=== PATIENT | male | born 1935 | race Caucasian/White ===

== ENCOUNTER 2020-01-27 08:01 | Outpatient (CLI) | payer MEDICARE, OTHER ==
--- NOTE | 2020-01-27 18:14 | EKG ---
Test Reason : Blood Pressure : / mmHG Vent. Rate : 074 BPM Atrial Rate : 074 BPM P-R Int : 218 ms QRS Dur : 110 ms QT Int : 366 ms P-R-T Axes : 082 -05 046 degrees QTc Int : 406 ms Sinus rhythm with 1st degree A-V block Otherwise normal ECG No previous ECGs available Confirmed by DR. Param ESCOBAR ([id number]) on 01/27/2020 6:13:41 PM Referred By: HELENE Confirmed By:DR. Param ESCOBAR
[2020-01-28 16:23] LABS: SARS-CoV-2 MS2 Positive; SARS-CoV-2 N Gene Negative; SARS-CoV-2 S Gene Negative; SARS-CoV-2 by NAA Not Detected (NotDetected); SARS-CoV-2 orf1ab Negative
== END 2020-01-27 08:02 | disposition home or self-care (01) ==
LOC: LABBT 08:01
PROVIDERS: ATTEND Neurological Surgery
DX: Z01.818 Encounter for other preprocedural examination (principal); Z20.828 Contact with and (suspected) exposure to other viral communicable diseases
CPT/HCPCS: 93005; U0003; 87635; 93010

== ENCOUNTER 2020-01-27 14:00 | Inpatient (IN) | payer MEDICARE, OTHER ==
[2020-01-30] MEDS ORDERED: Thrombin 5000 UNITS/5 ML VIAL ONE (06:11)
[2020-01-30] MEDS ORDERED: Lidocaine 0.5%/Epinephrine 1:200,000 50 ml Vial ONE (06:11)
[2020-01-30] MEDS ORDERED: Fentanyl 250 MCG/5 ML VIAL ONE (06:13)
[2020-01-30] MEDS ORDERED: levETIRAcetam 500 MG/100 ML PREMIX BAG ONE (06:14)
[2020-01-30] MEDS ORDERED: Albumin 5% 500 ML ONE (06:14)
[2020-01-30] MEDS ORDERED: Propofol 1,000 MG/100 ML VIAL IV ONE (06:44)
[2020-01-30 07:05] LABS: #Basophils 0.1 thou/uL (0.0-0.2); #Eosinphils 0.2 thou/uL (0.0-0.7); #Lymphocytes 1.2 thou/uL (1.20-3.40); #Monocytes 0.7 thou/uL (0.11-0.59); #Neutrophils 2.9 thou/uL (1.40-6.50); %Basophils 1.6 % (0.0-1.0); %Monocytes 13.4 % (0.0-10.0); Hemoglobin 9.4 g/dL (14.0-18.0); Mean Corpuscular HGB CONC 32.5 g/dL (32.0-36.0); Mean Corpuscular Hemoglobin 34.3 pg (27.0-31.0); Mean Platelet Volume 6.5 fL (7.4-10.4); Platelet Count 340 thou/uL (130-400); RBC Distribution Width 15.5 % (11.5-14.5); Red Blood Cell (RBC) Count 2.75 mill/uL (4.70-6.10); White Blood Cell (WBC) Count 5.1 thou/uL (4.8-10.8)
[2020-01-30] MEDS ORDERED: Clindamycin/D5W 900 mg/50 ml Premix Bag ONE (07:08)
[2020-01-30] MEDS ORDERED: Levofloxacin 500 mg/D5W 100 ml Premix Bag ONE (07:08)
[2020-01-30] MEDS ORDERED: Midazolam HCl 2 mg/2 ml Vial ONE (07:14)
[2020-01-30 07:15] LABS: Anion Gap 13 mmol/L (10-20); BUN (Urea Nitrogen) 25 mg/dL (8.4-25.7); Calc. Creatinine Clearance 27 mL/min (70-130); Calcium 8.6 mg/dL (7.8-10.44); Carbon Dioxide 21 mmol/L (23-31); Chloride 107 mmol/L (98-107); Estimated GFR-MDRD 23; Glucose 91 mg/dL (83-110); Potassium 4.9 mmol/L (3.5-5.1); Sodium 136 mmol/L (136-145)
--- NOTE | 2020-01-30 08:16 | CT ---
CT OF THE BRAIN WITHOUT CONTRAST: Date: 01/30/2020 INDICATION: History of preop evaluation of the brain; brain lab protocol. COMPARISON: None. FINDINGS: There is an extra-axial hyperdense mass overlying the left parietal lobe measuring 4.2 x 2.8 cm with underlying vasogenic edema of the subcortical white matter. There is underlying effacement of the sul ci of the left parietal region. There is no apparent midline shift. 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 No acute infarct or hemorrhage is evident. Visualized mastoid air cells and paranasal sinuses are clear. Skull is intact. IMPRESSION: Suspected hyperdense extra-axial mass overlying the left parietal convexity with underlying mass effe ct and vasogenic edema of the left parietal lobe. No midline shift is evident. POS: BH
[2020-01-30] MEDS ORDERED: Phenylephrine 10 MG/ML VIAL ONE (08:48)
[2020-01-30] MEDS ORDERED: Esmolol 100 MG/10 ML VIAL ONE (09:35)
[2020-01-30] MEDS ORDERED: Labetalol HCl 100 MG/20 ML VIAL ONE (09:35)
[2020-01-30] MEDS ORDERED: Dexamethasone 20 MG/5 ML VIAL ONE (09:35)
[2020-01-30] MEDS ORDERED: Ondansetron PF 4 MG/2 ML Vial ONE (09:35)
[2020-01-30] MEDS ORDERED: PROPOFOL 200 MG/20 ML VIAL ONE (09:35)
[2020-01-30] MEDS ORDERED: PHENYLEPHRINE-NS 100 MCG/ML 10 ML SYRINGE ONE (09:35)
[2020-01-30] MEDS ORDERED: Vecuronium 10 MG VIAL ONE (09:35)
[2020-01-30] MEDS ORDERED: Lidocaine 1% PF 5 ML VIAL ONE (09:35)
[2020-01-30] MEDS ORDERED: PACU-Morphine 4MG/ML VIAL SLOW IVP PRN (09:49)
[2020-01-30] MEDS ORDERED: Promethazine HCl 25 MG/ML VIAL SLOW IVP PRN (09:49)
[2020-01-30] MEDS ORDERED: Morphine Sulfate 2 MG/ML SYRINGE SLOW IVP PRN (09:49)
[2020-01-30] MEDS ORDERED: Ondansetron HCl/PF 4 MG/2 ML Vial IVP PRN (09:49)
[2020-01-30] MEDS ORDERED: Promethazine HCl 25 MG/ML VIAL IM PRN (09:49)
[2020-01-30] MEDS ORDERED: SUGAMMADEX SODIUM 200 MG/2 ML VIAL ONE (10:00)
[2020-01-30] MEDS ORDERED: diphenhydrAMINE 50 MG/ML VIAL IVP PRN (10:10)
[2020-01-30] MEDS ORDERED: Labetalol HCl 100 MG/20 ML VIAL SLOW IVP PRN (10:10)
[2020-01-30] MEDS ORDERED: Morphine 2 MG/ML VIAL SLOW IVP PRN (10:10)
[2020-01-30] MEDS ORDERED: Ondansetron PF 4 MG/2 ML Vial IVP PRN (10:10)
[2020-01-30] MEDS ORDERED: hydrALAZINE 20 MG/ML VIAL SLOW IVP PRN (10:10)
[2020-01-30] MEDS ORDERED: Docusate 100 MG CAP PO PRN (10:10)
[2020-01-30] MEDS ORDERED: clonazePAM 0.5 MG TAB PO PRN (10:12)
[2020-01-30] MEDS ORDERED: Ergocalciferol 1.25 MG(50,000 UNITS) CAP PO SCH ×2 (10:15→10:30)
[2020-01-30] MEDS ORDERED: Fentanyl 100 MCG/2 ML VIAL ONE (11:07)
--- NOTE | 2020-01-30 13:34 | OP ---
DATE OF PROCEDURE: 01/30/2020 POULTRY HATCHERY MANAGER: Anish Navas PA-C INDICATION: Prevent neurologic decline. DIAGNOSIS: Extra-axial mass consistent with tumor. PROCEDURE PERFORMED: Left frontoparietal craniotomy with resection of tumor and use of stereotactic image guidance for operative planning for microdissection. ANESTHESIA: General. DESCRIPTION OF PROCEDURE: The patient was brought into the operating room and placed under general anesthesia. He was placed on table in a supine position. The three-point Herrera Chau was applied to his head for optimal exposure and fixation to the table. Stereotactic imaging device was attached to the Chau system, and using fiducials, the BrainSlated system was registered for purposes of planning the incision and bone work. The incision was then prepped and draped in the usual sterile fashion. Following an appropriate operative pause, the incision was created. A self-retaining retractor was placed. Four bur holes were placed and a craniotomy was performed after connecting the montez holes with the router drill bit. The underlying dura was identified and bipolar cautery was used to devascularize the underlying tumor. A circumferential incision in the dura was created around the outlines of the tumor. The tumor was then carefully resected in a gross total fashion throughout as there was a nice plane between tumor and brain consistent with meningioma. After completing the removal of the tumor, hemostasis was maintained. We used irrigant quite liberally. Dural tack-up sutures were placed around the perimeter of the bone flap. The large sheet of Gel-Foam was placed over the dural defect. The bone was then returned and fixed at three-point fixation. The wound was then copiously irrigated. Hemostasis was maintained throughout. The wound was then closed in anatomic layers and a pressure dressing was applied. There were no known procedural complications. Job ID: [id number] [facility]
[2020-01-30 15:44] VITALS: BMI 28.4
[2020-01-30] MEDS: Sodium Chloride 0.9% 1,000 ML IV SCH ×2 (16:04→20:50)
[2020-01-30] MEDS: Clindamycin/D5W 900 MG in Premix Bag 1 BAG IVPB SCH ×2 (16:08→20:12)
[2020-01-30] MEDS ORDERED: Olmesartan 5 MG TAB PO SCH (17:07)
[2020-01-30] MEDS: Acetaminophen 325 MG TAB PO PRN ×2 (17:52→20:50)
[2020-01-30] MEDS: Dexamethasone 1 MG TAB PO SCH (18:47)
[2020-01-30] MEDS: Tamsulosin HCl 0.4 MG CAP PO SCH (20:14)
[2020-01-30] MEDS ORDERED: Tamsulosin HCl 0.4 MG CAP PO SCH (21:00)
[2020-01-30] MEDS ORDERED: Famotidine/PF 20 mg/2ml Vial SLOW IVP SCH ×2 (21:00)
[2020-01-31] MEDS: Clindamycin/D5W 900 MG in Premix Bag 1 BAG IVPB SCH (02:45)
[2020-01-31 04:39] LABS: Anion Gap 11 mmol/L (10-20); BUN (Urea Nitrogen) 23 mg/dL (8.4-25.7); Calc. Creatinine Clearance 29 mL/min (70-130); Calcium 7.8 mg/dL (7.8-10.44); Carbon Dioxide 19 mmol/L (23-31); Chloride 109 mmol/L (98-107); Estimated GFR-MDRD 24; Glucose 136 mg/dL (83-110); Potassium 5.1 mmol/L (3.5-5.1); Sodium 134 mmol/L (136-145)
[2020-01-31 05:08] LABS: Band 3 % (5-11); Hemoglobin 7.9 g/dL (14.0-18.0); Lymphocytes 4 % (21-51); MDiff Complete? YES; Mean Corpuscular HGB CONC 33.5 g/dL (32.0-36.0); Mean Corpuscular Hemoglobin 34.8 pg (27.0-31.0); Mean Platelet Volume 6.7 fL (7.4-10.4); Monocytes 14 % (0-10); Neutrophil 79 % (42-75); Platelet Count 291 thou/uL (130-400); RBC Distribution Width 15.6 % (11.5-14.5); Red Blood Cell (RBC) Count 2.28 mill/uL (4.70-6.10)
--- NOTE | 2020-01-31 07:54 | PRG ---
DATE OF SERVICE: 01/31/2020 Mr. Lewis is an 85-year-old gentleman 1 day status post resection of a meningioma. He had an uneventful night. I found him in the bed this morning sitting up on the side of the bed, awake, alert, oriented, and ready to eat breakfast. His neurologic exam is normal. He reports minimal to no pain. He is doing exceptionally well. His [employer]om[employer] has been out since yesterday, as has his art line. He has been urinating without difficulty. My plan today is to mobilize him a little bit more, and we will consider discharge as early as this afternoon, perhaps tomorrow. Job ID: [id number]
[2020-01-31] MEDS: Losartan 25 MG TAB PO SCH (08:45)
[2020-01-31] MEDS: Dexamethasone 1 MG TAB PO SCH ×2 (08:45→17:52)
[2020-01-31] MEDS ORDERED: FLU VACC QS2020-21(65YR UP)/PF 240 MCG/0.7 ML SYRINGE IM ONE (16:15)
[2020-01-31] MEDS: Tamsulosin HCl 0.4 MG CAP PO SCH (21:22)
[2020-01-31] MEDS: Acetaminophen 325 MG TAB PO PRN (21:22)
[2020-02-01] MEDS: Acetaminophen 325 MG TAB PO PRN (05:45)
[2020-02-01] MEDS: Losartan 25 MG TAB PO SCH (09:03)
[2020-02-01] MEDS: Dexamethasone 1 MG TAB PO SCH (09:09)
--- NOTE | 2020-02-01 11:31 | PRG ---
DATE OF SERVICE: Mr. Lewis floridly confused this morning. He is hallucinating. I am going to stop his steroids and decrease his Keppra. He is not going to be discharged from the hospital today. Job ID: [id number]
[2020-02-01] MEDS: Tamsulosin HCl 0.4 MG CAP PO SCH (20:19)
[2020-02-02] MEDS: Losartan 25 MG TAB PO SCH (07:56)
[2020-02-02 11:34] VITALS: BP 97/48; TEMP 97.4
--- NOTE | 2020-02-02 12:47 | PDOC.HHP ---
Hospitalist HPI - History of Present Illness Altered mental status Hospitalist ROS - Medication Medications: Active Medications Generic Name Dose Route Start Last Admin Trade Name Freq PRN Reason Stop Dose Admin Acetaminophen 650 mg 01/30/20 10:10 02/01/20 05:45 Acetaminophen 325 Mg Tab PO 650 mg Q4H PRN Administration Headache/Fever Or Mild Pain Clonazepam 0.25 mg 01/30/20 10:12 02/02/20 04:02 Clonazepam 0.5 Mg Tab PO 0.25 mg PRN PRN Administration Anxiety Docusate Sodium 100 mg 01/30/20 10:10 02/01/20 20:23 Docusate 100 Mg Cap PO 100 mg BIDPRN PRN Administration Constipation Labetalol HCl 10 mg 01/30/20 10:10 01/30/20 16:01 Labetalol Hcl 100 Mg/20 Ml Vial SLOW IVP 10 mg Q15MIN PRN Administration SBP > 160 mmHg Losartan Potassium 25 mg 01/31/20 09:00 02/02/20 07:56 Losartan 25 Mg Tab PO 25 mg DAILY LAN Administration Pantoprazole Sodium 40 mg 01/31/20 09:00 02/02/20 07:56 Pantoprazole 40 Mg Tab PO 40 mg DAILY LAN Administration Sodium Chloride 10 ml 01/30/20 21:00 02/02/20 10:54 Flush - Normal Saline 10 Ml Syringe IVF Not Given Q12HR LAN Tamsulosin HCl 0.8 mg 01/30/20 21:00 02/01/20 20:19 Tamsulosin Hcl 0.4 Mg Cap PO 0.8 mg HS LAN Administration Hospitalist Results - Labs Result Diagrams: 01/31/20 04:05 01/31/20 04:05 Lab results: WBC 9.0 thou/uL (4.8-10.8) 01/31/20 04:05 Hgb 7.9 g/dL (14.0-18.0) L 01/31/20 04:05 Hct 23.7 % (42.0-52.0) L 01/31/20 04:05 MCV 104.0 fL (78.0-98.0) H 01/31/20 04:05 Plt Count 291 thou/uL (130-400) 01/31/20 04:05 Neutrophils % 57.0 % (42.0-75.0) 01/30/20 06:26 Band Neuts % (Manual) 3 % (5-11) L 01/31/20 04:05 Sodium 134 mmol/L (136-145) L 01/31/20 04:05 Potassium 5.1 mmol/L (3.5-5.1) 01/31/20 04:05 Chloride 109 mmol/L (98-107) H 01/31/20 04:05 Carbon Dioxide 19 mmol/L (23-31) L 01/31/20 04:05 BUN 23 mg/dL (8.4-25.7) 01/31/20 04:05 Creatinine 2.56 mg/dL (0.7-1.3) H 01/31/20 04:05 Glucose 136 mg/dL (83-110) H 01/31/20 04:05 Calcium 7.8 mg/dL (7.8-10.44) 01/31/20 04:05
--- NOTE | 2020-02-02 14:22 | PRG ---
DATE OF SERVICE: 02/02/2020 The patient is postoperative day #3 after undergoing a left frontoparietal craniotomy for meningioma resection. Yesterday, he was exhibiting hallucinations and his Decadron and phenytoin were both discontinued. Today, the patient reports doing well and denies any hallucinations at this time. Several minutes were spent with the patient and he exhibited no signs of confusion or hallucinations today. He denies headache. He states that he has been ambulating using a walker. He reports some unsteadiness when ambulating, but states that it is his desire to go home today and he declined inpatient rehab for further therapies and mobilization. He exhibits excellent strength throughout his bilateral lower extremities on exam. His left parietal scalp wound displays no signs of infection or drainage. Given the patient is overall appearing well today and his desire to go home, he was determined stable for discharge home at this time. Discussed that our office can arrange for home health physical therapy to be set up, and the patient and his states that they would like this. Discussed wound care with the patient. Instructed the patient to discontinue dexamethasone and phenytoin at this time. Our team will defer to Dr. Seaman's team on if the phenytoin will need to be restarted. He patient will follow up on an outpatient basis as scheduled. The patient and his were provided with a business card with our office phone number, as well as the after hours call center's phone number. They will call with any questions or concerns. Job ID: [id number] [facility]
--- NOTE | 2020-02-04 04:39 | PQF ---
CLINICAL DOCUMENTATION CLARIFICATION FORM: Dear : Salima Rice Date / Time: 02/04/20 8974 Please exercise your independent, professional judgment in responding to the clarification form. Clinical indicators are provided on the bottom of this form for your review Please check appropriate box(es): [ ] Encephalopathy: Etiology: [ ] Metabolic [ ] Toxic [ ] Adverse effect of Decadron and Phenytoin [ ] Unspecified [ ] Other (please specify) [ ] Transient Alteration of Awareness [ ] Other diagnosis [X] Unable to determine - possible adverse effect of decadron and/or phenytoin In addition, please specify: Present on Admission (POA): [ ] Yes [X] No [ ] Unable to determine Physician Signature: Salima Rice PA-C Date/Time: 02/11/2020 7724 For continuity of documentation, please document condition throughout progress notes and discharge summary. Thank You. To be completed by CDI/Coding staff for physician review: Present Clinical Indicators - Signs / Symptoms / Labs Results and Location in Medical Record [X] BP 136/72, Pulse 87, Resp 16, Temp 99.5 Vital signs 01/30 [X] Confused this morning. He Is hallucinating PN p1 Dr Thorne 01/31 [X] Altered mental status HPN p1 02/01 Dr Palomino [X] Noted to be more confused and hallucinating HPN p1 02/01 Dr Palomino Present Risk Factors Results and Location in Medical Record [X] 85 year-old Male Operative report Dr Seaman 01/29 [X] Extra-axial Mass consistent with tumor Meningioma Operative report Dr Seaman 01/29 [X] Hyponatremia Present Treatments Results and Location in Medical Record [X] IVF NS 1L JUL 01 [X] Versed 2 mg oral JUL 01 [X] Klonopon 0.25 mg oral JUL 01 [X] CT brain Imaging 01/29 Dr Bains [X] Decreased keppra PN p1 Dr Thorne 01/31 [X] Stop Steroids PN p1 Dr Thorne 01/31 [X] Neuro exam PN p1 Dr. Seaman 01/31 [X] Sodium Chloride 1000ml IV JUL 01 CDS/Accounts Receivable Representative Signature: Aleena Cheatham Phone #: ext [phone] Date/Time: 02/04/2020 0438 This is a permanent part of the Medical Record [facility]
--- NOTE | 2020-02-04 04:40 | PQF ---
CLINICAL DOCUMENTATION CLARIFICATION FORM: Dear : Salima Rice Date / Time: 02/04/20 044 Please exercise your independent, professional judgment in responding to the clarification form. Clinical indicators are provided on the bottom of this form for your review Please check appropriate box(es): [ ] Cerebral edema / Vasogenic edema [ ] Compression of brain [ ] Other diagnosis, please specify: [ ] Unable to determine Physician Signature: Date/Time: For continuity of documentation, please document condition throughout progress notes and discharge summary. Thank You. To be completed by CDI/Coding staff for physician review: Present Clinical Indicators - Signs / Symptoms / Labs Results and Location in Medical Record [X] BP 136/72, Pulse 87, Resp 16, Temp 99.5 Vital signs 01/30 CT brain : Suspected hyperdense extra-axial mass overlying the left parietal convexity with underlying mass effect and vasogenic edema of the left parietal lobe. No midline shift is evident Imaging 01/29 Dr Bains [X] Confused this morning. He Is hallucinating PN p1 Dr Thorne 01/31 [X] Altered mental status HPN p1 02/01 Dr Palomino [X] Noted to be more confused and hallucinating HPN p1 02/01 Dr Palomino Present Risk Factors Results and Location in Medical Record [X] 85 year-old Male Operative report Dr Seaman 01/29 [X] Extra-axial Mass consistent with tumor Meningioma Operative report Dr Seaman 01/29 Present Treatments Results and Location in Medical Record [X] Decadron 2 mg oral JUL 01 [X] Versed 2 mg oral JUL 01 [X] Keppra 500 mgoral JUL 01 [X] Klonopon 0.25 mg oral JUL 01 [X] Neuro exam PN p1 Dr. Seaman 01/31 [X] Sodium Chloride 1000ml IV JUL 01 CDS/Erector Operator Signature: Aleena Cheatham Phone #: ext [phone] Date/Time: 02/04/20200 This is a permanent part of the Medical Record [facility]
== END 2020-02-02 15:03 | disposition home health service (06) | DRG 25 ==
LOC: SURG A 01-30 05:46 → EDSTATUS 01-30 14:00 → CCU 01-30 15:18 → SJJU 01-31 14:34
PROVIDERS: ADMIT Neurological Surgery; ATTEND Neurological Surgery
PROC: 00B70ZZ Excision of Cerebral Hemisphere, Open Approach (ICD-10-PCS; principal; 2020-01-30)
PROC: 00U20JZ Supplement Dura Mater with Synthetic Substitute, Open Approach (ICD-10-PCS; 2020-01-30)
DX: D32.0 Benign neoplasm of cerebral meninges (principal); G93.6 Cerebral edema; G93.5 Compression of brain; N40.0 Benign prostatic hyperplasia without lower urinary tract symptoms; K58.9 Irritable bowel syndrome, unspecified; I35.1 Nonrheumatic aortic (valve) insufficiency; I10 Essential (primary) hypertension; N28.9 Disorder of kidney and ureter, unspecified; F41.9 Anxiety disorder, unspecified; J45.909 Unspecified asthma, uncomplicated; R41.0 Disorientation, unspecified; T38.0X5A Adverse effect of glucocorticoids and synthetic analogues, initial encounter; T42.0X5A Adverse effect of hydantoin derivatives, initial encounter; R44.1 Visual hallucinations; Z88.0 Allergy status to penicillin; Z79.899 Other long term (current) drug therapy; Z79.52 Long term (current) use of systemic steroids; Z90.5 Acquired absence of kidney; Z85.528 Personal history of other malignant neoplasm of kidney; Z87.891 Personal history of nicotine dependence; Z20.828 Contact with and (suspected) exposure to other viral communicable diseases; Z01.818 Encounter for other preprocedural examination
CPT/HCPCS: 36415; 70450; 80048; 85025; 87635; 88307; 93005; C1713; J1100; J1953; J1956; J2001; J2250; J2370; J2405; J2704; J3010; J3490; J8540; P9045; S0028; U0003

== ENCOUNTER 2020-04-01 12:26 | Outpatient (CLI) | payer MEDICARE ==
--- NOTE | 2020-04-01 14:11 | CT ---
CT BRAIN NONCONTRAST: DATE: 04/01/2020 HISTORY: 85-year-old male status post brain tumor surgical removal, now experiencing bilateral hand numbness. Altered mental status, R41.82. Dr. Gutiérrez notified Dr. Evangelist Seaman of the findings via text message at 1313 hours on 04/01/2020, regardi ng the worsening of edema. Dr Seaman immediately texted back reply. COMPARISON: 01/30/2020. FINDINGS: There are new left parietal craniotomy changes. The inferior edge of the bone flap is slightly medial ly displaced. The previously demonstrated left parietal extra-axial tumor mass is no longer present. The associated large region of vasogenic edema in the left cerebral hemisphere appears more extensive now. For example, whereas the edema did not involve the cerebral vertex on 01/30/2020, the edema now does involve the precentral and postcentral gyri. Furthermore, the effacement of the trigone of the left lateral ventricle appears slightly worse now than before. Minimal left to right midline shift of the septum pellucidum a distance of 2 mm is noted. No obstructive hydrocephalus. No acute intra-axia l or extra-axial hemorrhage, or any other extra-axial fluid collection. Polypoid mucosal thickening t hroughout right maxillary sinus. The right frontal recess appears at least partially opacified. The r est of the paranasal sinuses are clear. Bilateral tympanomastoid cavities are clear. IMPRESSION: 1. Status post surgical resection of the left parietal meningioma via left craniotomy. 2. The underlying vasogenic edema and mass effect appear to be somewhat worse since 01/30/2020. CODE CR. JN Em
== END 2020-04-01 12:27 | disposition home or self-care (01) ==
LOC: TBSIIMAG 12:26
PROVIDERS: ATTEND Neurological Surgery
DX: R41.82 Altered mental status, unspecified (principal); Z98.890 Other specified postprocedural states; G93.6 Cerebral edema
CPT/HCPCS: 70450